=== PATIENT | male | born 1965 | race Caucasian/White ===

== ENCOUNTER 2021-10-24 12:35 | Emergency (ER) | payer MEDICARE, OTHER, MEDICAID ==
[~2021-10-24] VITALS: Ht 185.4 cm; Wt 82.0 kg
[2021-10-24] MEDS ORDERED: ACETAMINOPHEN 325MG TABLET PO STA (12:55)
[2021-10-24 13:54] LABS: BASOPHILS % 0.3 % (0.0-2.0); EOSINOPHILS % 0.1 % (0.0-5.0); HEMATOCRIT. 40.9 % (42.0-52.0); HEMOGLOBIN. 13.4 g/dL (14.0-18.0); LYMPHOCYTES % 7.5 % (20.0-50.0); MEAN CORPUSCULAR HEMOGLOBIN 26.5 pg (28.0-32.0); MEAN CORPUSCULAR VOLUME 81.2 fL (80.0-94.0); MEAN PLATELET VOLUME 7.7 fl (7.4-10.4); MONOCYTES % 7.4 % (2.0-8.0); NEUTROPHILS % 84.7 % (40.0-76.0); PLATELET 360 x1000/uL (130-400); RED BLOOD CELL COUNT 5.04 mill/uL (4.7-6.1)
[2021-10-24 14:02] LABS: CHLORIDE 106 mEq/L (98-107)
[2021-10-24 14:08] LABS: ETHANOL BLOOD < 10 mg/dL
[2021-10-24 19:05] LABS: CLARITY URINE CLEAR (CLEAR); COLOR URINE YELLOW (YELLOW); KETONES URINE 3+ (NEGATIVE); LEUKOCYTE ESTERASE URINE NEGATIVE (NEGATIVE); NITRITE URINE NEGATIVE (NEGATIVE); OCCULT BLOOD URINE NEGATIVE (NEGATIVE); PH URINE 5.5 (4.5-8.0); PROTEIN URINE 1+ (NEGATIVE); SPECIFIC GRAVITY URINE 1.041 (1.005-1.030)
[2021-10-24 19:16] LABS: *AMPHETAMINES SCREEN URINE NEGATIVE (NEGATIVE); *BARBITURATES SCREEN URINE NEGATIVE (NEGATIVE); *BENZODIAZEPINES SCREEN URINE NEGATIVE (NEGATIVE); *COCAINE SCREEN URINE NEGATIVE (NEGATIVE); CANNABINOID URINE SCREEN PRESUMTIVE POSITIVE (NEGATIVE); METHADONE URINE SCREEN NEGATIVE (NEGATIVE); OPIATES URINE SCREEN NEGATIVE (NEGATIVE); PHENCYCLIDINE URINE SCREEN NEGATIVE (NEGATIVE)
[2021-10-25] MEDS ORDERED: ONDANSETRON 4MG ODT PO ONE (02:45)
[2021-10-25] MEDS ORDERED: ONDANSETRON 4MG ODT PO SCH (04:45)
[2021-10-25] MEDS: RISPERIDONE 0.5MG TABLET PO SCH ×2 (08:58→20:17)
[2021-10-26] MEDS: RISPERIDONE 0.5MG TABLET PO SCH ×3 (00:36→09:12)
[2021-10-26 13:08] VITALS: BP 143/99
== END 2021-10-26 13:10 ==
LOC: ER 12:35
DX: S09.90XA Unspecified injury of head, initial encounter (principal); Z20.822 Contact with and (suspected) exposure to COVID-19; Z86.59 Personal history of other mental and behavioral disorders; X58.XXXA Exposure to other specified factors, initial encounter; Y93.89 Activity, other specified; Y92.89 Other specified places as the place of occurrence of the external cause; Y99.8 Other external cause status
CPT/HCPCS: 36415; 70450; 80048; 80305; 80307; 80320; 80329; 81003; 85025; 99285; C9803; Q0162; U0003; U0005; G0480